=== PATIENT | female | born 1950 | race Caucasian/White ===

== ENCOUNTER 2016-12-02 18:06 | Emergency (ER) | payer MEDICARE, OTHER ==
--- OUTSIDE RECORDS SUMMARY | 2016-12-02 18:42 | XMS REPORT | Continuity of Care Document ---
:1950 Author Organization [facility] ([facility]) [place] [address] Phone [phone] Care Team Providers Name Role Phone Kory Obando Primary Care Provider [phone] Source Comments This disclosure is being made pursuant to the Care Everywhere program, applicable federal and state laws, and may not contain all informaitonavailable regarding this patient.[facility] ([facility]) Active Allergies and Adverse Reactions Allergen Noted Date Severity Reactions Comments Ibuprofen 03/19/2012 Nausea & Vomiting Current Medications Prescription Sig. Disp. Refills Start Date End Date Status aspirin 81 mg tablet Take 81 mg by mouth Active daily. HYDROcodone-acetamin Take 2 Tabs by mouth Active ophen 7.5-500 mg per every 6 hours as tablet needed. albuterol (PROAIR Use 2 Puffs by 1 Inhaler 12 03/19/2012 Active HFA) 90 inhalation every 6 mcg/Actuation hours as needed. inhaler Indications: BRONCHOSPASM PREVENTION SUPPLY FREESTYLE by In Vitro route 2 150 Strip 5 03/19/2012 Active LITE test strips times daily. Insulin Dependent Indications: TYPE 2 DIABETES MELLITUS SUPPLY FREESTYLE by In Vitro route 2 1 Each 0 03/19/2012 Active LITE meter times daily. Indications: TYPE 2 DIABETES MELLITUS SUPPLY FREESTYLE by Miscellaneous 200 Each 5 03/19/2012 Active lancets route 2 times daily. Insulin Dependent Indications: TYPE 2 DIABETES MELLITUS gabapentin 300 mg Take 3 Caps by mouth 270 Cap 5 03/25/2012 Active capsule 3 times daily. Indications: NEUROPATHIC PAIN nortriptyline 25 mg Take 1 Cap by mouth 30 Cap 5 06/21/2012 Active capsule at bedtime. Indications: NEUROPATHIC PAIN metFORMIN 500 mg Take 1 Tab by mouth 60 Tab 1 10/29/2012 Active tablet 2 times daily. Indications: TYPE 2 DIABETES MELLITUS SUPPLY insulin pen Use as directed 100 Each 3 11/01/2012 Active needles (PEN Indications: NEEDLES) 31 g X 6 DIABETES MELLITUS MM donepezil 10 mg Take 10 mg by mouth Active tablet at bedtime cyanocobalamin Take 1,000 mcg by Active (VITAMIN B-12) 1,000 mouth daily mcg tablet escitalopram oxalate Take 20 mg by mouth Active 20 mg tablet daily insulin glargine Inject 60 Units 08/16/2015 Active (LanTUS SOLOSTAR) subcutaneously at 100 unit/mL (3 mL) bedtime. injection pen lisinopril 5 mg Take 2 tablets (03 2808/16/2015 Active tablet mg total) by mouth daily. metoPROLol tartrate Take 0.5 tablets 30 tablet 0 08/16/2015 Active 25 mg tablet (12.5 mg total) by mouth every 12 hours. insulin lispro Inject 15 Units 10 mL 2 08/17/2015 Active (HumaLOG) 100 subcutaneously 3 unit/mL injection times daily with vial meals Inject an additional 3 u per 50>150. 151-200 - 3 u; 201-250 - 6 u, 251-300 - 9 u. Active Problems Problem Noted Date Essential hypertension, benign 08/16/2015 Chest pain 08/15/2015 Elevated BP 06/21/2012 Foot callus 06/21/2012 Diabetes type 2, uncontrolled 03/19/2012 Peripheral neuropathy due to DM 03/19/2012 RAD (reactive airway disease) 03/19/2012 Generalized OA 03/19/2012 Health education/counseling 03/19/2012 Immunizations Name Dates Previously Given Next Due Influenza, PF 03/19/2012 Pneumococcal Polysaccharide, PPSV23 (Pneumovax 23) 03/19/2012 Tdap 03/19/2012 Social History Tobacco Use Types Packs/Day Years Used Date Never Smoker Smokeless Tobacco: Never Used Alcohol Use Drinks/Week oz/Week Comments No Last Filed Vital Signs Vital Sign Reading Time Taken Blood Pressure 146/70 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 Pulse 86 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 Temperature 36 C (96.8 F) 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 Respiratory Rate 18 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 Height 1.626 m (5' 4") 08/15/2015 11:45 PM [employer]CUITS [employer]ER Weight 81.9 kg (180 lb 8.9 oz) 08/15/2015 11:45 PM [employer]CUITS ENGINEER Body Mass Index 30.98 08/15/2015 11:45 PM [employer]CUITS ENGINEER Oxygen Saturation 92% 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 Plan of Care Patient Goal Type Goal Diet Decrease soda or juice intake Weight Weight below 91 kg (200 lb) Health Maintenance Due Date Last Done Comments HCV Screening 1950 Hepatitis B Vaccine (1 of 3 - Primary 1950 Series) Cervical Cancer Screening 1981 Mammogram 1991 Colonoscopy 05/18/2001 FOBT Colon Cancer Screening 2001 Sigmoidoscopy Colon Cancer Screening 2001 Zoster Vaccine 2011 DIABETIC: Retinal Eye Exam 03/19/2012 DIABETIC: Hemoglobin A1C 12/19/2012 06/21/2012, 03/19/2012 DIABETIC: Foot Exam 03/19/2013 03/19/2012, 03/19/2012 DIABETIC: Microalbumin 03/19/2013 03/19/2012 DIABETIC: Cholesterol 06/21/2013 06/21/2012, 03/19/2012 Diabetic: Hdl 06/21/2013 06/21/2012, 03/19/2012 Diabetic: Ldl 06/21/2013 06/21/2012, 03/19/2012 DIABETIC: Triglycerides 06/21/2013 06/21/2012, 03/19/2012 Influenza Vaccine: Seasonal (#1) 01/17/2016 03/19/2012 Osteoporosis Screening (DXA Bone Density) 2016 Pneumococcal Vaccine (1 of 2 - PCV13) 2016 03/19/2012 Td Vaccine 03/19/2022 03/19/2012 Tdap Vaccine Completed 03/19/2012 Results from Last 3 Months Not on file
--- NOTE | 2016-12-02 18:49 | ERNOTE ---
Lower Extremity HPI - Narrative Date of Service: 12/02/16 - General Lower Extremities Pain: foot: right - turned foot , now has pain Time Seen by Provider: 12/02/16 18:23 Source: patient, family Exam Limitations: no limitations - Immun/Allergies/Home Medications Immunizations: IMMUNIZATION HX Immunizations Up to Date Yes History of Influenza Vaccine Yes Hx Pneumococcal Vaccination No Allergies/Adverse Reactions: Allergies Allergy/AdvReac Type Severity Reaction Status Date / Time adhesive tape Allergy Verified 12/02/16 18:15 ibuprofen Allergy Verified 12/02/16 18:15 Home Medications: HOME MEDICATIONS Albuterol Sulfate [Albuterol Sulfate Hfa] 2 puff IH Q4H PRN 04/19/13 [Last Taken Unknown] Gabapentin 1,200 mg PO TID 04/19/13 [Last Taken 02/17/15] Albuterol Sulfate [Albuterol Sulfate 2.5 MG/0.5ML] 2.5 mg IH Q4H PRN 08/11/13 [ Last Taken Unknown] Lisinopril [Zestril] 5 mg PO DAILY 10/13/13 [Last Taken 02/17/15] metFORMIN HCL [Metformin HCl] 500 mg PO BID 11/03/13 [Last Taken 02/17/15] Insulin Glargine,Hum.rec.anlog [Lantus] 45 units SC BID 02/17/15 [Last Taken 08/02] Escitalopram Oxalate [Lexapro] 20 mg PO DAILY 03/12/15 [Last Taken Unknown] HYDROcodone/ACETAMINOPHEN [Atkins 5-325] 1 tab PO Q4H PRN #40 tab 12/02/16 [Last Taken Unknown] - History of Present Illness Occurred: just prior to arrival Location of Incident: home Method of Injury: Reports: twisted Reason for Fall: Reports: lost balance Loss of Consciousness: Reports: no loss of consciousness Modifying Factors - (Improves): Reports: immobilization Modifying Factors - (Worsens): Reports: movement Associated Symptoms: Reports: unable to bear weight Other Injuries: Reports: none Subsequent Symptoms: Reports: sensory loss Review of Systems - Review of Systems Constitutional: Present: no symptoms reported EYE: Present: no symptoms reported ENT: Present: no symptoms reported Respiratory: Present: no symptoms reported Cardiology: Present: no symptoms reported Gastrointestinal/Abdominal: Present: no symptoms reported Genitourinary: Present: no symptoms reported Musculoskeletal: Present: no symptoms reported Skin: Present: no symptoms reported Neurological: Present: no symptoms reported Endocrine: Present: no symptoms reported Hematologic/Lymphatic: Present: no symptoms reported - Patient's Past Medical History Patient History - Medical: Chronic Pain, Diabetes Type 2, Migraines Patient History - Cardiac/Respiratory: No pertinent hx Patient History - Cancer: No Hx of Cancer Patient History - Surgical Procedures: Other Patient History - Other: None - Family History Father Family History - Medical: Diabetes Type 2 Brother Family History - Medical: Diabetes Type 2 - Social History Living Situations: spouse Abuse History: No History of abuse Psych History: No pertinent hx Smoking Status: Never smoker Alcohol Use: none Drug Use: none - Immunizations Immunizations Up to Date: Yes Hx Pneumococcal Vaccination: No History of Influenza Vaccine: Yes Physical Exam - Physical Exam General Appearance: Present: alert, moderate distress Eye Exam: Normal inspection: bilateral, PERRL: bilateral, EOMI: bilateral Ears, Nose, Throat: Present: normal ENT inspection Neck: Present: normal inspection Respiratory: Present: no respiratory distress Cardiovascular/Chest: Present: regular rate, rhythm Peripheral Pulses: N=norm/S=strong/W=weak/B=bound/A=absent: Carotid (R): Normal , Carotid (L): Normal, Radial (R): Normal, Radial (L): Normal, Femoral (R): Normal, Femoral (L): Normal, Dorsalis-pedis (R): Normal, Dorsalis-pedis (L): Normal Gastrointestinal/Abdominal: Present: normal bowel sounds, nontender, nondistended, soft, no organomegaly Back Exam: Present: normal inspection, normal range of motion, no CVA tenderness , no vertebral tenderness Extremity Exam: Present: bony tenderness, joint redness - pain and swelling to dorsum of mid-foot DTR: N=norm/NB=norm/brisk/A=abs/DD=dull/dimin/HC=hyperactive: Bicep (R): Normal , Bicep (L): Normal, Tricep (R): Normal, Tricep (L): Normal, Knee (R): Normal, Knee (L): Normal, Ankle (R): Normal, Ankle (L): Normal Skin Exam: Present: normal color, warm/dry Lymphatic Exam: Present: no adenopathy ED Progress - Vital Signs Patient's Vital Signs:: I have reviewed the patient's vital signs. Vital Signs: Vital Signs 12/02/16 18:07 Temperature 36.6 C Pulse Rate 96 Respiratory 16 Rate Blood Pressure 123/86 O2 Sat by Pulse 95 Oximetry - Progress/Reassessment Chief Complaint: Foot Injury/Pain Progress:: Unchanged - Transfer of Care Expected Disposition: Discharge Departure Clinical Impression: Sprain of foot - Departure Disposition: Home self-care Condition: Fair Instructions: Foot Sprain Referrals: Kory Pate MD [Primary Care Provider] - Prescriptions: HYDROcodone/ACETAMINOPHEN [Atkins 5-325] 1 tab PO Q4H PRN #40 tab PRN Reason: Pain
[2016-12-02] MEDS ORDERED: HYDROcodone/ACETAMINOPHEN 1 EACH TABLET PO ONE (18:50)
[2016-12-02 18:55] VITALS: BP 121/73
== END 2016-12-02 18:53 | disposition home or self-care (01) ==
LOC: ER 18:06
DX: S93.601A Unspecified sprain of right foot, initial encounter (principal); W01.0XXA Fall on same level from slipping, tripping and stumbling without subsequent striking against object, initial encounter; Y93.9 Activity, unspecified; Y92.009 Unspecified place in unspecified non-institutional (private) residence as the place of occurrence of the external cause; G89.29 Other chronic pain; E11.9 Type 2 diabetes mellitus without complications